=== PATIENT | male | born 1990 | race Caucasian/White ===

== ENCOUNTER 2024-10-01 20:02 | Emergency (ER) | payer MEDICAID ==
[~2024-10-01] VITALS: Ht 185.4 cm; Wt 86.2 kg
[2024-10-01] MEDS: LORazepam 1 MG tablet PO ONE (21:21)
[2024-10-01 21:55] LABS: BILIRUBIN,URINE NEGATIVE (Neg); CLARITY,URINE CLEAR (Clear); COLOR,URINE YELLOW (Yellow); GLUCOSE, URINE NEGATIVE (Neg); KETONES,URINE NEGATIVE (Neg); LEUKOCYTE ESTERASE ,URINE NEGATIVE (Neg); NITRITES, URINE NEGATIVE (Neg); OCCULT BLOOD,URINE NEGATIVE (Neg); PROTEIN,URINE NEGATIVE (Neg); UROBILINOGEN,URINE 0.2 E.U/dL (0.2-1.0)
[2024-10-01 21:58] LABS: UA COLLECTION TYPE VOIDED
--- NOTE | 2024-10-02 03:11 | Physician Documentation ---
History of Present Illness ~ Chief Complaint: Mental Health Eval Stated Complaint: MH Time Seen by MD: 20:17 Mode of Arrival: Ambulatory HPI Recently kicked out of detox living facility for reemergence of addiction symptoms. Sad, homeless Medication Reconciliation Allergies: Coded Allergies: Sulfa (Sulfonamide Antibiotics) (Verified Allergy, Unknown, rash, 10/01/24) Review of Systems All Other Systems at this time: Reviewed and Negative Physical Exam Vital Signs: Temperature: 96.8, Source: Temporal, Heart Rate: 73, Respiratory Rate: 14, BP: 130/84, Pulse Oximetry: 95, Weight: 86.200 Oxygen Flow Rate: 0 Physical Exam HEENT: PERRL, moist oral mucosa, EOMI Pulmonary: No respiratory distress MSK: no deformity Skin: w/d/i, no rash Neuro: alert, nonfocal Psych: sad affect Progress Results/Orders Results/Orders Orders - EKATERINA NIETO MD Straight Cath For Urine Sample (10/01/24 21:26) Completed Orders - EKATERINA NIETO MD Lorazepam Tablet (Ativan Tablet) (10/01/24 20:40) Urinalysis, Cult If Indicated (10/01/24 21:26) Vital Signs 10/01/24 10/01/24 10/01/24 20:06 20:21 23:00 Temp 96.8 Pulse 84 73 Resp 15 14 B/P (MAP) 113/68 130/84 (99) Pulse Ox 98 95 O2 Flow Rate 0 Laboratory Tests Test 10/01/24 21:25 Urine Specimen Description Voided Urine Color Yellow Urine Clarity Clear Urine pH 6.0 Urine Specific [place] >=1.030 Urine Protein Negative Urine Glucose (UA) Negative Urine Ketones Negative Urine Occult Blood Negative Urine Nitrite Negative Urine Bilirubin Negative Urine Urobilinogen 0.2 Urine Leukocyte Esterase Negative Urine Culture Indicated Not ind Volume Urine Centrifuged 10 ml Urine Comment Medical Decision Making Findings 34 year old male as above. Observed, home medications, improved on reevaluation, not suicidal, verbalizes plan of self-care. Return precautions. Differential Dx:Considerations: Include: Alcohol abuse, Bipolar disorder, Co nversion disorder, Depression, Encephaloathy, Personality disorder, Schizophrenia, Substance abuse, Suicidal Departure Disposition: 01 HOME / SELF CARE / HOMELESS Impression: Primary Impression: Depression Condition: Stable Discharge Instructions: Suicidal Feelings: How to Help Yourself Referrals: NO PRIMARY CARE PROVIDER (PCP) Education Educated: Patient Educated regarding: diagnosis, treatment, prognosis, need for follow up Signature Scribe Signature: . Attestation: . EKATERINA NIETO MD Oct 02, 2024 03:11
[2024-10-02 05:42] VITALS: BP 129/88; PULSE 94; RESP 18; TEMP 98.2; O2SAT 94
== END 2024-10-02 05:45 | disposition home or self-care (01) ==
LOC: ER 20:03
DX: F32.A Depression, unspecified (principal); Z88.2 Allergy status to sulfonamides; Z59.00 Homelessness unspecified
CPT/HCPCS: 81003; 99283